=== PATIENT | female | born 1980 | race Caucasian/White ===

== ENCOUNTER 2017-01-27 15:47 | Emergency (ER) | payer BC ==
[2017-01-27 16:09] VITALS: BP 120/77
--- NOTE | 2017-01-27 16:24 | RAD ---
HISTORY: Left ankle injury COMPARISONS: None VIEWS: 3, Frontal, lateral, and oblique views of the left ankle FINDINGS: BONE DENSITY: Normal. BONES: There is no displaced fracture. JOINTS: There is no arthropathy. ALIGNMENT: There is no dislocation. SOFT TISSUES: There is circumferential soft tissue swelling most pronounced along the lateral malleolus OTHER FINDINGS: None. IMPRESSION: SOFT TISSUE SWELLING. NO ACUTE OSSEOUS INJURY. IF SYMPTOMS PERSIST, RECOMMEND REPEAT IMAGING.
--- NOTE | 2017-01-27 16:49 | UC ---
Lower Extremity/Ankle HPI - HPI Summary HPI Summary: Twisted left ankle while walking in [place] at 1330 today - History of Current Complaint Hx Obtained From: Patient Hx Last Menstrual Period: 01/13/17 ?: No Onset/Duration: Sudden Onset, Still Present Severity Initially: Moderate Severity Currently: Moderate Pain Intensity: 6 Pain Scale Used: 0-10 Numeric Aggravating Factor(s): Standing, Ambulation Alleviating Factor(s): Rest Able to Bear Weight: Yes - was able to walk out of the [place] <Tameka Martinez - Last Filed: 01/27/17 17:09> <Anusha Fitzpatrick - Last Filed: 01/27/17 18:08> - History of Current Complaint Chief Complaint: UCLowerExtremity Stated Complaint: ANKLE INJURY Time Seen by Provider: 01/27/17 16:41 - Allergies/Home Medications Allergies/Adverse Reactions: Allergies Allergy/AdvReac Type Severity Reaction Status Date / Time Gluten Meal Allergy GI Upset Verified 01/27/17 16:09 Latex Allergy Rash Verified 01/27/17 16:09 Ramelteon [From Rozerem] Allergy Anxiety Verified 02/21/16 07:45 PMH/Surg Hx/FS Hx/Imm Hx Previously Healthy: Yes Other History Of: Negative For: HIV, Hepatitis B, Hepatitis C, Anticoagulant Therapy - Surgical History Surgical History: None - Family History Known Family History: Positive: Cardiac Disease, Hypertension, Diabetes - Social History Occupation: Employed Full-time Lives: With Family Alcohol Use: Occasionally Substance Use Type: Marijuana Substance Use Comment - Amount & Last Used: every now and then per pt. Smoking Status (MU): Never Smoked Tobacco <Tameka Martinez - Last Filed: 01/27/17 17:09> Review of Systems Constitutional: Negative Skin: Negative Eyes: Negative ENT: Negative Respiratory: Negative Cardiovascular: Negative Gastrointestinal: Negative Genitourinary: Negative Motor: Negative Neurovascular: Negative Musculoskeletal: Arthralgia - left ankle, Edema - left lateral ankle Neurological: Negative Psychological: Negative All Other Systems Reviewed And Are Negative: Yes <Tameka Martienz - Last Filed: 01/27/17 17:09> Physical Exam Triage Information Reviewed: Yes Appearance: Well-Appearing, Well-Nourished, Pain Distress - mild Vital Signs: Initial Vital Signs Temp 99.3 F 01/27/17 16:06 Pulse 74 01/27/17 16:06 Resp 18 01/27/17 16:06 BP 120/77 01/27/17 16:06 Pulse Ox 99 01/27/17 16:06 Vital Signs Reviewed: Yes Eye Exam: Normal Eyes: Positive: Conjunctiva Clear ENT Exam: Normal ENT: Positive: Normal ENT inspection, Hearing grossly normal. Negative: Nasal congestion, Nasal drainage, Trismus, Muffled/hoarse voice Dental Exam: Normal Neck exam: Normal Neck: Positive: Supple, Nontender Respiratory Exam: Normal Respiratory: Positive: Chest non-tender, No respiratory distress Cardiovascular Exam: Normal Cardiovascular: Positive: RRR, Pulses Normal, Brisk Capillary Refill Musculoskeletal Exam: Other - left ankle Musculoskeletal: Positive: Strength Limited @, ROM Limited @, Edema @ Neurological Exam: Normal Neurological: Positive: Alert, Muscle Tone Normal Psychological Exam: Normal Skin Exam: Normal <Tameka Martinez - Last Filed: 01/27/17 17:09> Vital Signs: Initial Vital Signs Temp 99.3 F 01/27/17 16:06 Pulse 74 01/27/17 16:06 Resp 18 01/27/17 16:06 BP 120/77 01/27/17 16:06 Pulse Ox 99 01/27/17 16:06 <Anusha Fitzpatrick - Last Filed: 01/27/17 18:08> Diagnostics - Radiology No standard instances Xray Interpretation: Positive (See Comments) - soft tissue swelling Radiology Interpretation Completed By: Radiologist <Tameka Martinez - Last Filed: 01/27/17 17:09> Lower Extremity Course/Dx - Course Course Of Treatment: valeria, splint, crutches, non-weightbearing, pain control, rice follow with orthopedic MD - Differential Dx/Diagnosis Differential Diagnosis/HQI/PQRI: Bursitis, Fracture (Closed), Sprain, Strain Provider Diagnoses: Left ankle sprain <Tameka Martinez - Last Filed: 01/27/17 17:09> Discharge <Tameka Martinez - Last Filed: 01/27/17 17:09> <Anusha Fitzpatrick - Last Filed: 01/27/17 18:08> - Discharge Plan Condition: Stable Disposition: HOME Prescriptions: Hydrocodone-Acetaminophen [Hydrocodone/Acetaminophen 5-325 mg] 1 tab PO Q6H PRN #16 tab MDD 4 PRN Reason: more sever pain Ibuprofen TAB* [Motrin TAB* 600 MG] 600 mg PO Q6H PRN #40 tab PRN Reason: mild pain Patient Education Materials: Ankle Sprain (ED), Crutch Instructions (ED), Ankle Stirrup Splint (ED), RICE Therapy (ED) Forms: *Work Release Referrals: [facility] [Provider Group] - 5 Days Zoe Lay MD [Primary Care Provider] - Asthma HPI <Tameka Martinez - Last Filed: 01/27/17 17:09> - HPI Summary HPI Summary: Twisted left ankle while walking in [place] at 1330 today - History of Current Complaint Hx Obtained From: Patient Hx Last Menstrual Period: 01/13/17 ?: No Onset/Duration: Sudden Onset, Still Present Pain Intensity: 6 Pain Scale Used: 0-10 Numeric <Anusha Fitzpatrick - Last Filed: 01/27/17 18:08> - History of Current Complaint Chief Complaint: UCLowerExtremity Stated Complaint: ANKLE INJURY Time Seen by Provider: 01/27/17 16:41 - Allergy/Home Medications Allergies/Adverse Reactions: Allergies Allergy/AdvReac Type Severity Reaction Status Date / Time Gluten Meal Allergy GI Upset Verified 01/27/17 16:09 Latex Allergy Rash Verified 01/27/17 16:09 Ramelteon [From Rozerem] Allergy Anxiety Verified 02/21/16 07:45 Attestation Statement User Type: Provider - I was available for consult. This patient was seen by the JUAN DAVID. The patient was not presented to, seen by, or examined by me. -Sruthi <Anusha Fitzpatrick - Last Filed: 01/27/17 18:08>
== END 2017-01-27 17:26 | disposition home or self-care (01) ==
LOC: UCEAST 15:47
DX: S93.402A Sprain of unspecified ligament of left ankle, initial encounter (principal); X50.1XXA Overexertion from prolonged static or awkward postures, initial encounter; Y93.01 Activity, walking, marching and hiking; Y92.828 Other wilderness area as the place of occurrence of the external cause; Y99.9 Unspecified external cause status
CPT/HCPCS: 99213; G0463